=== PATIENT | male | born 2000 | race Caucasian/White ===

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

== ENCOUNTER 2021-09-27 05:28 | Outpatient (CLI) | payer BC ==
[~2021-09-27] VITALS: Ht 185.5 cm; Wt 104.5 kg
[2021-10-04] MEDS ORDERED: DOCU-143 PO (09:38)
[2021-10-04] MEDS ORDERED: ACHD5005 PO (09:38)
== END 2021-10-01 12:33 | disposition home or self-care (01) ==
LOC: PREOP 05:28
PROVIDERS: ATTEND Surgery
DX: Z01.818 Encounter for other preprocedural examination (principal)

== ENCOUNTER 2021-10-04 05:54 | Day surgery (SDC) | payer BC, OTHER ==
[~2021-10-04] VITALS: Ht 185 cm; Wt 104.5 kg
[2021-10-04] VITALS (10 sets, daily range): BP systolic 119–149; BP diastolic 80–100
[2021-10-04] MEDS ORDERED: ceFAZolin 2 GM IV Premixed 50 ML IV ONE (06:15)
[2021-10-04] MEDS: LACTATED RINGERS 1,000 ML IV PRN ×2 (06:25→09:20)
[2021-10-04] MEDS ORDERED: SEVOFLURANE (ULTANE) 15 ML INHAL SOLN ONE ×2 (07:24→09:35)
[2021-10-04] MEDS ORDERED: proPOfol 200 MG/20 ML (DIPRIVAN) VIAL IV ONE (07:24)
[2021-10-04] MEDS ORDERED: LIDOCAINE PF 2% 5 ML (XYLOCAINE) VIAL ONE (07:24)
[2021-10-04] MEDS ORDERED: ROCURONIUM 50 MG/5 ML (ZEMURON) VIAL IV ONE (07:24)
[2021-10-04] MEDS ORDERED: LIDOCAINE/EPI 1%-1:100,000 (XYLOCAINE) 20ML ONE (07:25)
[2021-10-04] MEDS ORDERED: MIDAZOLAM 2 MG/2 ML (VERSED) VIAL ONE (07:26)
[2021-10-04] MEDS ORDERED: fentaNYL INJ 100 MCG/2 ML AMP ONE ×2 (07:26→09:57)
--- NOTE | 2021-10-04 07:51 | Progress Note-Pre Operative ---
Pre-Operative Progress Note H&P Reviewed The H&P was reviewed, patient examined and no changes noted. Date Seen by Provider: Oct 04, 2021 Time Seen by Provider: 07:45 Date H&P Reviewed: Oct 04, 2021 Time H&P Reviewed: 07:45 Pre-Operative Diagnosis: umbilical hernia ORESTES PEARSON DO Oct 04, 2021 07:51
[2021-10-04] MEDS ORDERED: ACHD5005 PO (09:38)
[2021-10-04] MEDS ORDERED: DOCU-143 PO (09:38)
--- NOTE | 2021-10-04 09:39 | Discharge Inst-Simple/Standard ---
Discharge Inst-Standard Discharge Medications New, Converted or Re-Newed RX: Transmitted to Pharmacy Patient Instructions/Follow Up Plan of Care/Instructions/FU: 2 weeks Tamanna Activity as Tolerated: No Discharge Diet: Regular Diet Other Inst to Patient Follow up Appt: Make appointment for 2 week. Instructions: No lifting greater than 10 pounds. No strenuous activity. May shower in 24 hours, no tub bath or soaking. Use incentive spirometer at home as directed. No Smoking Skin/Wound Care: You have special glue over your incision that will fall off on it's own. Remove umbilical bandage in 48 hours. Symptoms to Report: Appetite Changes, Extremity Discoloration, Numbness/Tingling, Swelling Increased, Bleeding Excessive, Eyesight Changes, Pain Increased, Urine Color Change, Constipation(Persistent), Fever over 101 degree F, Pain/Pressure in chest, Urinating Difficulty, Cough Up/Vomit Blood, Heart Beat Irreg/Pounding, Pain/Pressure in jaw, Vaginal Bleeding Increase, Cramps in feet or legs, Lightheadedness, Pain/Pressure in shoulder, Diarrhea(Persistent), Memory Changes Suddenly, Questions/Concerns, Weight gain consecutive days, Dizziness/Fainting, Nausea/Vomiting, Shortness of Breath, Weight gain over 2 pounds If questions or concerns contact your physician Or seek help at emergency department. ORESTES PEARSON DO Oct 04, 2021 09:39
--- NOTE | 2021-10-04 09:41 | Progress Note-Post Operative ---
Post-Operative Progess Note Surgeon (s)/Try On Baster (s) Surgeon ORESTES PEARSON DO Try On Baster: Dr. Jolley Pre-Operative Diagnosis umbilical hernia Post-Operative Diagnosis incarcerated umbilical hernia Procedure & Operative Findings Date of Procedure 10/04/21 Procedure Performed/Findings robotic incarcerated umbilical hernia repair c mesh Anesthesia Type gen Estimated Blood Loss Estimated blood loss (mL): minimal Specimens/Packing Specimens Removed na ORESTES PEARSON DO Oct 04, 2021 09:41
[2021-10-04] MEDS ORDERED: NEOSTIGMINE (BLOXIVERZ ) 1 MG/1ML 10 ML VIAL ONE (09:48)
[2021-10-04] MEDS ORDERED: GLYCOPYRROLATE 0.2 MG/ML (ROBINUL) 2 ML VIAL ONE (09:48)
[2021-10-04] MEDS ORDERED: morphine INJ 10 MG/ML 1ML (SYR OR VIAL) IVP ONE (10:00)
[2021-10-04] MEDS ORDERED: MEPERIDINE (DEMEROL) INJ 50 MG/ML IVP ONE (10:00)
[2021-10-04] MEDS ORDERED: fentaNYL INJ 100 MCG/2 ML AMP IVP ONE (10:00)
[2021-10-04] MEDS ORDERED: ONDANSETRON 4 MG/2 ML (SDV) Z0FRAN IVP PRN (10:00)
[2021-10-04] MEDS ORDERED: PROMETHAZINE INJ 25 MG/ML (PHENERGAN) AMP IVP ONE (10:00)
--- NOTE | 2021-10-04 10:01 | Anesthesia-General Post-Op ---
General Post Op Complications Complications None Follow Up Care/Instructions Patient Instructions None needed. Anesthesia/Patient Condition Patient Condition Patient is doing well, no complaints, stable vital signs, no apparent adverse anesthesia problems. No complications reported per nursing. BESSIE TAMAYO CRNA Oct 04, 2021 10:01
[2021-10-04] MEDS ORDERED: HYDROcodone/APAP 5 MG/325 MG (LORTAB) TAB PO ONE (11:00)
[2021-10-04] MEDS ORDERED: HYDROcodone/APAP 5 MG/325 MG (LORTAB) TAB ONE (11:01)
--- NOTE | 2021-10-04 22:39 | OPERATIVE REPORT ---
DATE OF SERVICE: 10/04/2021 PREOPERATIVE DIAGNOSIS: Umbilical hernia. POSTOPERATIVE DIAGNOSIS: Incarcerated umbilical hernia. PROCEDURE: Robotic incarcerated umbilical hernia repair with mesh, 4-1/2 inch Echo Ventralight mesh. SURGEON: Jose Nolen DO [employer] CASE MANAGER: Dr. Jolley, assisted in retraction, dissection and closure. ANESTHESIA: General. ESTIMATED BLOOD LOSS: Minimal. COMPLICATIONS: None. INDICATIONS: The patient is a 20-year-old male with umbilical hernia causing discomfort. He understands risks and benefits of procedure and wishes to proceed. Consent was signed in the chart. DESCRIPTION OF PROCEDURE: The patient was taken to the operating suite. He was prepped and draped in sterile fashion. Timeout was performed. Local anesthetic was infiltrated in left upper quadrant. An 11 blade scalpel was used to make a small skin incision. The cautery used to dissect down through the subcutaneous tissues. The anterior fascia was encountered and divided. The muscle was then bluntly divided. The posterior sheath was divided and the abdomen was then entered. A kamara trocar was inserted and pneumoperitoneum was achieved. Under direct visualization, an 8 mm trocar was placed in the left lower quadrant and also the lateral left side. The robot was then docked. The peritoneum was then taken down and also the falciform was taken divided off with cautery scissors. Fat herniated through this area and was incarcerated up through this dissection was used to remove the fat and continue to take it down inferiorly. Once the fascia was visualized well, an Echo Ventralight 4-1/2 inch mesh was inserted and grab through a stab incision at the umbilicus and brought up and secured the mesh circumferentially with a 2-0 V-Loc absorbable suture. This was also taken down the middle of the mesh as well with the intraabdominal pressure decreased. The needles were then cut and removed. Prior to going down the middle with a 2-0 V-Loc, the balloon was removed as well. The trocars were removed. The fascial defect of the left upper quadrant incision was then closed using 0 Vicryl in a [id number] fashion. The skin was then closed using 4-0 Monocryl in a running subcuticular fashion. The skin was then washed and dried and Skin Affix was placed. The patient tolerated the procedure well without any complications, taken to recovery room in stable condition. CC: [facility] -- requested, unable to deliver. Job ID: [id number] DocumentID: [id number] Dictated Date: 10/04/2021 16:35:46 Cloth Painter Date: 10/04/2021 22:38:21 Dictated By: DO KEREN MORROW
== END 2021-10-04 12:40 | disposition home or self-care (01) ==
LOC: SDC 05:54
PROVIDERS: ATTEND Surgery
DX: K42.0 Umbilical hernia with obstruction, without gangrene (principal)
CPT/HCPCS: 87081